=== PATIENT | female | born 1950 | race African-American/Black ===

== ENCOUNTER 2016-11-28 15:35 | Emergency (ER) | payer BC ==
--- NOTE | 2016-11-28 17:11 | ED CLINICAL REPORT ---
Clinical Report - Physicians/Mid Levels [facility] [address] [place] [address] 11/28/2016 15:38 Patient: JERRELL BAUER Time Seen: 15:55 Nov 28 2016. Arrived- By private vehicle. Historian- patient. HISTORY OF PRESENT ILLNESS Chief Complaint: SKIN RASH. This started 7 days and is still present. It is described as painful and burning. It has been located on the right lower extremity and left lower extremity. No recent medication. (Bilateral sores on legs over the last 7 days, history of similar, history of swelling. patient denies any history of DVT or PE. Patient recently moved to the area. Chronic off/ on swelling, at times worse. Saw pain specialist today, was taking too many meds, referred lorain.). REVIEW OF SYSTEMS No fever, cough, difficulty breathing, lump in throat or abdominal pain. All systems otherwise negative, except as recorded above. SOCIAL HISTORY Former smoker. No alcohol use or drug use. ADDITIONAL NOTES The nursing notes have been reviewed. PHYSICAL EXAM Vital Signs: 11/28/2016 15:48 BP: 156/104. HR: 108. RR: 20. O2 saturation: 100%. Temp: 98.5 F. Pain level now: 7/10. Appearance: Alert. ENT: Ears normal. Nose normal. CVS: Normal heart rate and rhythm. Heart sounds normal. Respiratory: No respiratory distress. Breath sounds normal. Skin: Skin warm. Small area of cellulitis with tenderness and erythema to right leg and left leg. No rash to scalp. There is warmth. Extremities: (good pedal pulse, no pedal edema. full rom at a nkle/ full rom at knee.). LABS, X-RAYS, AND EKG Laboratory Tests: CBC w Diff: (MAIRA: 11/28/2016 16:20) ( MsgRcvd 11/28/2016 17:04) Final results Test Result Flag Units (Reference) WHITE BLOOD COUNT 8.4 K/uL (4.5-11.5) RED BLOOD COUNT 3.48 L M/uL (4.00-5.20) HEMOGLOBIN 10.5 L gm/dL (12.0-16.0) HEMATOCRIT 32.8 L % (36.0-46.0) MEAN CELL VOLUME 95 fL (80-100) MEAN CORPUSCULAR HGB 30 pg (26-34) MEAN CORPUSCULAR HGB CONC 32 g/dL (31-37) RED CELL DISTRIBUTION WIDTH 16.0 H % (11.6-14.8) PLATELET COUNT 346 K/uL (150-400) NEUTROPHIL % 78.2 H % (50-75) LYMPH % 16.8 L % (25-40) MONO % 4.9 % (3-14) EOSINOPHIL % 0.1 % (0-4) BASOPHIL % 0 % (0-2) [id number]: (MAIRA: 11/28/2016 16:20) ( MsgRcvd 11/28/2016 17:16) Final results Test Result Flag Units (Reference) PROCALCITONIN < 0.5 ng/mL (0-0.5) PCT Concentration: Interpretation : Risk/option for action PCT <=0.5 ng/mL : Systemic : Low risk forinfection(sepsis): progression to severeis not likely. : systemic infection.Local bacterial : CAUTION-PCT levelsinfection is : below 0.5 ng/mL do notpossible. : exclude an infection,because localizedinfections (withoutsystemic signs) may beassociated with suchlow levels. If PCT ismeasured very earlyafter a bacterialchallenge (usually <6hours), these valuesmay still be low. Inthis case PCT shouldbe re-assessed 6-24hours later. PCT >0.5 and : Systemic infection: Moderate risk for<= 2 ng/mL : (sepsis) is : progression to severepossible, but : systemic infection.other conditions : The patient should beare known to : closely monitoredelevate PCT. : both clinically andby re-assessing PCTwithin 6-24 hours. PCT > 2 ng/mL : Systemic infection: High risk for(sepsis) is likely: progression to severeunless other : systemic infection.causes are known. : PCT >= 10 ng/mL : Important systemic: High likelihood ofinflammatory : severe sepsis orresponse, almost : septic shock.exclusively due to:severe bacterial :sepsis or septic :shock. : BMP: (MAIRA: 11/28/2016 16:20) ( MsgRcvd 11/28/2016 16:44) Final results Test Result Flag Units (Reference) GLUCOSE 103 mg/dL (70-110) BUN 19 H mg/dL (7-18) CREATININE 1.5 H mg/dL (0.6-1.3) Estimated GFR 37.16 mL/min Estimated GFR- 45.03 mL/min Note: Persistent reduction over 3 months in eGFR<60 mL/min/1.73 m2 defines CKD. Patients with eGFR values>=60 mL/min/1.73 m2 may also have CKD if evidence ofpersistent proteinuria. Additional information may be foundat www.kidney.org. SODIUM 144 mmol/L (136-145) POTASSIUM 3.6 mmol/L (3.5-5.1) CHLORIDE 111 H mmol/L (98-107) CARBON DIOXIDE 20 L mmol/L (21-32) CALCIUM 8.2 L mg/dL (8.5-10.1) . Note - Tests: (US VENOUS: IMPRESSION: 1. Negative venous ultrasound of the bilateral lower extremities. Electronically Final signed by:Alexey Lou MD 11/28/2016 5:23:52 PM). PROGRESS AND PROCEDURES Course of Care: Pt in the ER is very stable. Afebrile. Concerned she has not established pcp, however she has established pain management, however was self dosing too many pills, and has pain specialist for such who appears concerned pt not following his recommendations. Pt with no signs of dvt. NO lymphagetic streaking. Does not take meds for dm. 11/28/2016 17:21 BP: 182/90. HR: 111. RR: 20. O2 saturation: 100%. Temp: 97.9 F. Pain level now: 710. Patient is stable. Symptoms better. Patient/family counseled. Disposition: Discharged. CLINICAL IMPRESSION Cellulitis of the right lower leg and left lower leg. Diabetes (diet controlled). Hypertension. INSTRUCTIONS (elevate your legs limit sodium (salt) intake Address: [address] [place] [address] ). Prescription Medications: Bactrim DS 800 mg / 160 mg: take 1 tablet orally every 12 hours for 10 days. No refill. Substitution is permissible. Follow-up with: Wild Magaña MD, [facility], , [facility], [address] [place] [address] Follow up in two days for wound check. Call for the next available appointment. (Electronically signed by Carina Valencia P.A.-C 11/28/2016 18:16)
--- NOTE | 2016-11-28 17:11 | ED ORDER SUMMARY ---
..... Patient: JERRELL BAUER OrderSheet [facility] VisitID: [id number] [address] [place] [address] 66y, F Registration Date/Time: 11/28/2016 ORDER SHEET Weight: 61.2 kg (stated) Allergies: No Known Drug Allergy GENERAL ORDERS: CBC w Diff Urgent (15:52 11/28/2016 EKoroleva P.A.-C) (Ack 15:54 LNations ER Tech1) (16:24 JSimbeck R.N.) BMP Urgent (15:52 11/28/2016 EKoroleva P.A.-C) (Ack 15:54 LNations ER Tech1) (16:24 JSimbeck R.N.) PCT (Procalcitonin) Urgent (15:52 11/28/2016 EKoroleva P.A.-C) (Ack 15:54 LNations ER Tech1) (16:24 JSimbeck R.N.) US Venous Bilat Urgent (16:11 11/28/2016 EKoroleva P.A.-C) (Ack 16:12 LNations ER Tech1) (17:15 JSimbeck R.N.) Vitals (17:11 11/28/2016 EKoroleva P.A.-C) (17:25 IJurca ER Tech1) MEDICATION ORDERS: Percocet PO 10/650 mg (HIGH ALERT MEDICATION, NOW) (16:37 11/28/2016 EKoroleva P.A.-C) (16:47 LSullivan R.N.) Bactrim DS PO (Tablet 800-160 mg) 1 tab (NOW) (17:10 11/28/2016 EKoroleva P.A.-C) (17:22 JSimbeck R.N.) Dilaudid IM 2 mg (NOW) (17:30 11/28/2016 EKoroleva P.A.-C) (17:42 JSimbeck R.N.) IV FLUIDS: ORDER SHEET NOTES: [Electronically signed by Carina Valencia PFeliciaA.-C (18:16 11/28/2016)] [Electronically signed by Analisa Woodard R.N. (18:11/28/2016)] [Electronically locked/signed by Analisa Woodard R.N. (18:11/28/2016)]
--- NOTE | 2016-11-28 17:11 | ED NURSING NOTES ---
Clinical Report - Nurses [place] [address] [place] [address] 11/28/2016 15:38 Patient: JERRELL BAUER TRIAGE Triage time 15:48. Acuity: LEVEL 3. Chief Complaint: (Swelling in her legs, chronic; worse recently. Intermittent chills.). BRUNA COMA SCORE: Bruna Coma Scale: 15- eyes open spontaneously (4); best verbal response- oriented x 4 (5); best motor response- obeys commands (6). --15:57 Romaine Wilson R.N. 15:48 11/28/16. BP: 156/104. HR: 108. RR: 20. O2 saturation: 100% on room air. Temp: 98.5 F (oral). Pain level now: 01/07. --15:57 Romaine Wilson R.N. Weight: 61.2 kg stated. Height/Length: 62 inches Per Patient. BMI: 24.7. --15:53 Romaine Wilson R.N. Medications OxyCONTIN Oral. --15:49 Romaine Wilson R.N. Gabapentin Oral (Tablet 600 mg) 2 tablets, Q2 hours. --15:51 Romaine Wilson R.N. Allergies No Known Drug Allergy. --16:23 Romaine Wilson R.N. History Arrived by private vehicle. Historian: patient. ( Pt was driven by a friend). SOCIAL HX: Former smoker, end date 1996 (cigarette). No alcohol use or drug use. ABUSE ASSESSMENT: No report of abuse. --15:57 Romaine Wilson R.N. PROBLEMS: CVA - Cerebrovascular Accident. --15:50 Romaine Wilson R.N. Hypertension. Diabetes Mellitus. Sleep Apnea. --15:53 Romaine Wilson R.N. MRSA Infection. --16:21 Romaine Wilson R.N. ADDITIONAL SURGERIES: Bowel Surgery. Gastric Bypass. Hysterectomy. --15:53 Romaine Wilson R.N. Interventions ID band on patient. To treatment room. --15:57 Romaine Wilson R.N. PHYSICAL ASSESSMENT late entry -15:55. To room via wheelchair. GENERAL / NEURO / PSYCH: Alert. Oriented X 4. Appears in pain. HEENT: Pupils equal, round and reactive to light. No facial asymmetry noted. Mucous membranes are pink. RESPIRATORY: Respirations not labored. Chest nontender. Breath sounds within normal limits. CVS: Capillary refill less than 2 seconds. Pulses within normal limits. GI / : Abdomen soft and nontender and normal bowel sounds. SKIN: Skin is warm and dry. ( Bilat LE's have edema, errythema, open lesions, pain 01/07). --16:16 Romaine Wilson R.N. NURSING PROGRESS NOTES Reassurance given. Two patient identifiers checked. Call light placed in reach. Bed placed in lowest position. Brakes of bed on. Patient ready for evaluation- chart flagged. --16:17 Romaine Wilson R.N. 16:47 11/28/2016 Percocet (Oxycodone-Acetaminophen) PO 5/325 mg Tablets 2 tab given. Allergies verified, confirmed 5 rights and sedative warning given to the patient. --16:47 Analisa Woodard R.N. ( Pt unable to hold still for ultrasound, due to pain, medicated during ultrasound). --16:47 Analisa Woodard R.N. 17:20 11/28/2016 Bactrim DS (Sulfamethoxazole-TMP DS) PO Tablets 1 tab given. Allergies verified and confirmed 5 rights. --17:22 Romaine Wilson R.N. 17:30 11/28/2016 Percocet PO Response: no adverse reaction symptoms are the same. The patient feels the same. --17:43 Romaine Wilson R.N. 17:40 11/28/2016 Dilaudid (HYDROmorphone HCl PF) IM 2 mg given. Given in the left gluteus charly. Allergies verified, confirmed 5 rights and sedative warning given to the patient. --17:42 Romaine Wilson R.N. DISPOSITION / DISCHARGE 17:21 11/28/16. BP: 182/90. HR: 111. RR: 20. O2 saturation: 100% on room air. Temp: 97.9 F (oral). Pain level now: 01/07. --17:27 Romaine Wilson R.N. 18:10. Condition at departure: improved. No learning barriers present. Discharge instructions provided and reviewed with the patient. Reviewed medication(s) information. Prescription(s) given to the patient. Reviewed referrals. Verbalized understanding. Written instructions provided. The patient was discharged home and accompanied by family. She left the Emergency Department in a wheelchair and via private vehicle. Family member driving. --18:20 Analisa Woodard R.N. 18:19 11/28/16. BP: 170/81. HR: 109. RR: 18. O2 saturation: 100%. Temp: 98.5 F. Pain level now: 11/07. --18:20 Analisa Woodard R.N. Locked/Released at 11/28/2016 18:21 by Analisa Woodard R.N.
--- NOTE | 2016-11-28 17:11 | ED CLINICAL REPORT ---
Clinical Report - Physicians/Mid Levels [facility] [address] [place] [address] 11/28/2016 15:38 Patient: JERRELL BAUER Time Seen: 15:55 Nov 28 2016. Arrived- By private vehicle. Historian- patient. HISTORY OF PRESENT ILLNESS Chief Complaint: SKIN RASH. This started 7 days and is still present. It is described as painful and burning. It has been located on the right lower extremity and left lower extremity. No recent medication. (Bilateral sores on legs over the last 7 days, history of similar, history of swelling. patient denies any history of DVT or PE. Patient recently moved to the area. Chronic off/ on swelling, at times worse. Saw pain specialist today, was taking too many meds, referred lorain.). REVIEW OF SYSTEMS No fever, cough, difficulty breathing, lump in throat or abdominal pain. All systems otherwise negative, except as recorded above. SOCIAL HISTORY Former smoker. No alcohol use or drug use. ADDITIONAL NOTES The nursing notes have been reviewed. PHYSICAL EXAM Vital Signs: 11/28/2016 15:48 BP: 156/104. HR: 108. RR: 20. O2 saturation: 100%. Temp: 98.5 F. Pain level now: 7/10. Appearance: Alert. ENT: Ears normal. Nose normal. CVS: Normal heart rate and rhythm. Heart sounds normal. Respiratory: No respiratory distress. Breath sounds normal. Skin: Skin warm. Small area of cellulitis with tenderness and erythema to right leg and left leg. No rash to scalp. There is warmth. Extremities: (good pedal pulse, no pedal edema. full rom at a nkle/ full rom at knee.). LABS, X-RAYS, AND EKG Laboratory Tests: CBC w Diff: (MAIRA: 11/28/2016 16:20) ( MsgRcvd 11/28/2016 17:04) Final results Test Result Flag Units (Reference) WHITE BLOOD COUNT 8.4 K/uL (4.5-11.5) RED BLOOD COUNT 3.48 L M/uL (4.00-5.20) HEMOGLOBIN 10.5 L gm/dL (12.0-16.0) HEMATOCRIT 32.8 L % (36.0-46.0) MEAN CELL VOLUME 95 fL (80-100) MEAN CORPUSCULAR HGB 30 pg (26-34) MEAN CORPUSCULAR HGB CONC 32 g/dL (31-37) RED CELL DISTRIBUTION WIDTH 16.0 H % (11.6-14.8) PLATELET COUNT 346 K/uL (150-400) NEUTROPHIL % 78.2 H % (50-75) LYMPH % 16.8 L % (25-40) MONO % 4.9 % (3-14) EOSINOPHIL % 0.1 % (0-4) BASOPHIL % 0 % (0-2) [id number]: (MAIRA: 11/28/2016 16:20) ( MsgRcvd 11/28/2016 17:16) Final results Test Result Flag Units (Reference) PROCALCITONIN < 0.5 ng/mL (0-0.5) PCT Concentration: Interpretation : Risk/option for action PCT <=0.5 ng/mL : Systemic : Low risk forinfection(sepsis): progression to severeis not likely. : systemic infection.Local bacterial : CAUTION-PCT levelsinfection is : below 0.5 ng/mL do notpossible. : exclude an infection,because localizedinfections (withoutsystemic signs) may beassociated with suchlow levels. If PCT ismeasured very earlyafter a bacterialchallenge (usually <6hours), these valuesmay still be low. Inthis case PCT shouldbe re-assessed 6-24hours later. PCT >0.5 and : Systemic infection: Moderate risk for<= 2 ng/mL : (sepsis) is : progression to severepossible, but : systemic infection.other conditions : The patient should beare known to : closely monitoredelevate PCT. : both clinically andby re-assessing PCTwithin 6-24 hours. PCT > 2 ng/mL : Systemic infection: High risk for(sepsis) is likely: progression to severeunless other : systemic infection.causes are known. : PCT >= 10 ng/mL : Important systemic: High likelihood ofinflammatory : severe sepsis orresponse, almost : septic shock.exclusively due to:severe bacterial :sepsis or septic :shock. : BMP: (MAIRA: 11/28/2016 16:20) ( MsgRcvd 11/28/2016 16:44) Final results Test Result Flag Units (Reference) GLUCOSE 103 mg/dL (70-110) BUN 19 H mg/dL (7-18) CREATININE 1.5 H mg/dL (0.6-1.3) Estimated GFR 37.16 mL/min Estimated GFR- 45.03 mL/min Note: Persistent reduction over 3 months in eGFR<60 mL/min/1.73 m2 defines CKD. Patients with eGFR values>=60 mL/min/1.73 m2 may also have CKD if evidence ofpersistent proteinuria. Additional information may be foundat www.kidney.org. SODIUM 144 mmol/L (136-145) POTASSIUM 3.6 mmol/L (3.5-5.1) CHLORIDE 111 H mmol/L (98-107) CARBON DIOXIDE 20 L mmol/L (21-32) CALCIUM 8.2 L mg/dL (8.5-10.1) . Note - Tests: (US VENOUS: IMPRESSION: 1. Negative venous ultrasound of the bilateral lower extremities. Electronically Final signed by:Alexey Lou MD 11/28/2016 5:23:52 PM). PROGRESS AND PROCEDURES Course of Care: Pt in the ER is very stable. Afebrile. Concerned she has not established pcp, however she has established pain management, however was self dosing too many pills, and has pain specialist for such who appears concerned pt not following his recommendations. Pt with no signs of dvt. NO lymphagetic streaking. Does not take meds for dm. 11/28/2016 17:21 BP: 182/90. HR: 111. RR: 20. O2 saturation: 100%. Temp: 97.9 F. Pain level now: 710. Patient is stable. Symptoms better. Patient/family counseled. Disposition: Discharged. CLINICAL IMPRESSION Cellulitis of the right lower leg and left lower leg. Diabetes (diet controlled). Hypertension. INSTRUCTIONS (elevate your legs limit sodium (salt) intake Address: [address] [place] [address] ). Prescription Medications: Bactrim DS 800 mg / 160 mg: take 1 tablet orally every 12 hours for 10 days. No refill. Substitution is permissible. Follow-up with: Wild Magaña MD, [facility], , [facility], [address] [place] [address] Follow up in two days for wound check. Call for the next available appointment. (Electronically signed by Carina Valencia P.A.-C 11/28/2016 18:16)
--- NOTE | 2016-11-28 17:11 | ED ORDER SUMMARY ---
..... Patient: JERRELL BAUER OrderSheet [facility] VisitID: [id number] [address] [place] [address] 66y, F Registration Date/Time: 11/28/2016 ORDER SHEET Weight: 61.2 kg (stated) Allergies: No Known Drug Allergy GENERAL ORDERS: CBC w Diff Urgent (15:52 11/28/2016 EKoroleva P.A.-C) (Ack 15:54 LNations ER Tech1) (16:24 JSimbeck R.N.) BMP Urgent (15:52 11/28/2016 EKoroleva P.A.-C) (Ack 15:54 LNations ER Tech1) (16:24 JSimbeck R.N.) PCT (Procalcitonin) Urgent (15:52 11/28/2016 EKoroleva P.A.-C) (Ack 15:54 LNations ER Tech1) (16:24 JSimbeck R.N.) US Venous Bilat Urgent (16:11 11/28/2016 EKoroleva P.A.-C) (Ack 16:12 LNations ER Tech1) (17:15 JSimbeck R.N.) Vitals (17:11 11/28/2016 EKoroleva P.A.-C) (17:25 IJurca ER Tech1) MEDICATION ORDERS: Percocet PO 10/650 mg (HIGH ALERT MEDICATION, NOW) (16:37 11/28/2016 EKoroleva P.A.-C) (16:47 LSullivan R.N.) Bactrim DS PO (Tablet 800-160 mg) 1 tab (NOW) (17:10 11/28/2016 EKoroleva P.A.-C) (17:22 JSimbeck R.N.) Dilaudid IM 2 mg (NOW) (17:30 11/28/2016 EKoroleva P.A.-C) (17:42 JSimbeck R.N.) IV FLUIDS: ORDER SHEET NOTES: [Electronically signed by Carina Valencia PFeliciaA.-C (18:16 11/28/2016)] [Electronically signed by Analisa Woodard R.N. (18:11/28/2016)] [Electronically locked/signed by Analisa Woodard R.N. (18:11/28/2016)]
--- NOTE | 2016-11-28 17:11 | ED NURSING NOTES ---
Clinical Report - Nurses [place] [address] [place] [address] 11/28/2016 15:38 Patient: JERRELL BAUER TRIAGE Triage time 15:48. Acuity: LEVEL 3. Chief Complaint: (Swelling in her legs, chronic; worse recently. Intermittent chills.). BRUNA COMA SCORE: Bruna Coma Scale: 15- eyes open spontaneously (4); best verbal response- oriented x 4 (5); best motor response- obeys commands (6). --15:57 Romaine Wilson R.N. 15:48 11/28/16. BP: 156/104. HR: 108. RR: 20. O2 saturation: 100% on room air. Temp: 98.5 F (oral). Pain level now: 01/07. --15:57 Romaine Wilson R.N. Weight: 61.2 kg stated. Height/Length: 62 inches Per Patient. BMI: 24.7. --15:53 Romaine Wilson R.N. Medications OxyCONTIN Oral. --15:49 Romaine Wilson R.N. Gabapentin Oral (Tablet 600 mg) 2 tablets, Q2 hours. --15:51 Romaine Wilson R.N. Allergies No Known Drug Allergy. --16:23 oRmaine Wilson R.N. History Arrived by private vehicle. Historian: patient. ( Pt was driven by a friend). SOCIAL HX: Former smoker, end date 1996 (cigarette). No alcohol use or drug use. ABUSE ASSESSMENT: No report of abuse. --15:57 Romaine Wilson R.N. PROBLEMS: CVA - Cerebrovascular Accident. --15:50 Romaine Wilson R.N. Hypertension. Diabetes Mellitus. Sleep Apnea. --15:53 Romaine Wilson R.N. MRSA Infection. --16:21 Romaine Wilson R.N. ADDITIONAL SURGERIES: Bowel Surgery. Gastric Bypass. Hysterectomy. --15:53 Romaine Wilson R.N. Interventions ID band on patient. To treatment room. --15:57 Romaine Wilson R.N. PHYSICAL ASSESSMENT late entry -15:55. To room via wheelchair. GENERAL / NEURO / PSYCH: Alert. Oriented X 4. Appears in pain. HEENT: Pupils equal, round and reactive to light. No facial asymmetry noted. Mucous membranes are pink. RESPIRATORY: Respirations not labored. Chest nontender. Breath sounds within normal limits. CVS: Capillary refill less than 2 seconds. Pulses within normal limits. GI / : Abdomen soft and nontender and normal bowel sounds. SKIN: Skin is warm and dry. ( Bilat LE's have edema, errythema, open lesions, pain 01/07). --16:16 Romaine Wilson R.N. NURSING PROGRESS NOTES Reassurance given. Two patient identifiers checked. Call light placed in reach. Bed placed in lowest position. Brakes of bed on. Patient ready for evaluation- chart flagged. --16:17 Romaine Wilson R.N. 16:47 11/28/2016 Percocet (Oxycodone-Acetaminophen) PO 5/325 mg Tablets 2 tab given. Allergies verified, confirmed 5 rights and sedative warning given to the patient. --16:47 Analisa Woodard R.N. ( Pt unable to hold still for ultrasound, due to pain, medicated during ultrasound). --16:47 Analisa Woodard R.N. 17:20 11/28/2016 Bactrim DS (Sulfamethoxazole-TMP DS) PO Tablets 1 tab given. Allergies verified and confirmed 5 rights. --17:22 Romaine Wilson R.N. 17:30 11/28/2016 Percocet PO Response: no adverse reaction symptoms are the same. The patient feels the same. --17:43 Romaine Wilson R.N. 17:40 11/28/2016 Dilaudid (HYDROmorphone HCl PF) IM 2 mg given. Given in the left gluteus charly. Allergies verified, confirmed 5 rights and sedative warning given to the patient. --17:42 Romaine Wilson R.N. DISPOSITION / DISCHARGE 17:21 11/28/16. BP: 182/90. HR: 111. RR: 20. O2 saturation: 100% on room air. Temp: 97.9 F (oral). Pain level now: 01/07. --17:27 Romaine Wilson R.N. 18:10. Condition at departure: improved. No learning barriers present. Discharge instructions provided and reviewed with the patient. Reviewed medication(s) information. Prescription(s) given to the patient. Reviewed referrals. Verbalized understanding. Written instructions provided. The patient was discharged home and accompanied by family. She left the Emergency Department in a wheelchair and via private vehicle. Family member driving. --18:20 Analisa Woodard R.N. 18:19 11/28/16. BP: 170/81. HR: 109. RR: 18. O2 saturation: 100%. Temp: 98.5 F. Pain level now: 11/07. --18:20 Analisa Woodard R.N. Locked/Released at 11/28/2016 18:21 by Analisa Woodard R.N.
--- NOTE | 2016-11-28 17:24 | DIAGNOSTIC IMAGING REPORT ---
PROCEDURE: US VENOUS - BILATERAL EXT INDICATION: Bilateral lower extremity edema. TECHNIQUE: Color Doppler duplex imaging of the deep and superficial venous system without and with compression. COMPARISON: None. FINDINGS: RIGHT LOWER EXTREMITY: Deep and superficial venous system of the right lower extremity is within normal limits. There is no evidence of deep vein thrombosis or superficial thrombophlebitis. LEFT LOWER EXTREMITY: Deep and superficial venous system of the left lower extremity is within normal limits. There is no evidence of deep vein thrombosis or superficial thrombophlebitis. IMPRESSION: 1. Negative venous ultrasound of the bilateral lower extremities.
--- NOTE | 2016-11-28 18:22 | ED MAR SUMMARY ---
..... Medication Administration Record [facility] [address] [place] [address] Patient: JERRELL BAUER Visit ID: [id number] 66y, F Weight: 61.2 kg Height/Length: 62 in BMI: 24.7 ALLERGIES: No Known Drug Allergy Given 16:47 11/28/2016 Analisa Woodard R.N. Medication Administered: PERCOCET [PO] (OXYCODONE-ACETAMINOPHEN), Dose: 2 tab 5/325 mg Tablets PO. Medication Ordered: Percocet PO 10/650 mg (HIGH ALERT MEDICATION, NOW). Given 17:20 11/28/2016 Romaine Wilson R.N. Medication Administered: BACTRIM DS [PO] (SULFAMETHOXAZOLE-TMP DS), Dose: 1 tab Tablets PO. Medication Ordered: Bactrim DS PO (Tablet 800-160 mg) 1 tab (NOW). Given 17:40 11/28/2016 Romaine Wilson R.N. Medication Administered: DILAUDID [IM] (HYDROMORPHONE HCL PF), Dose: 2 mg IM. Medication Ordered: Dilaudid IM 2 mg (NOW).
--- NOTE | 2016-11-28 18:22 | ED DISCHARGE INSTRUCTIONS ---
Patient: JERRELL BAUER General Instructions [facility] VisitID: [id number] [place] [address] 66y, F Registration Date/Time: 11/28/2016 Cellulitis of the right lower leg and left lower leg. Diabetes (diet controlled). Hypertension. INSTRUCTIONS (elevate your legs limit sodium (salt) intake Address: [address] [place] [address] ). Prescription Medications: Bactrim DS 800 mg / 160 mg: take 1 tablet orally every 12 hours for 10 days. No refill. Substitution is permissible. Follow-up with: Wild Magaña MD, [facility], , [facility], [address] [place] [address] Follow up in two days for wound check. Call for the next available appointment. ADDITIONAL INFORMATION Cellulitis You have an infection of the skin known as cellulitis. This usually starts with a scrape, cut, insect bite, blister or other opening in the skin which becomes infected. This is a serious condition. It must be watched closely to be sure the infection is not spreading. With antibiotic treatment, the size of the red area will gradually shrink in size until the skin returns to normal. This will take 7-10 days. The red area should never increase in size once the antibiotic medicine has been started. Occasionally, an infection will be resistant to one antibiotic and another one will have to be used. Home Care: 1) Limit the use of the affected part, since excess movement can cause the infection to spread. 2) If the infection is on your leg, walk as little as possible during the first few days of the treatment. Keep your leg elevated while sitting. This will reduce swelling. 3) Take all of the antibiotic medicine exactly as directed until it is gone. Be careful not to miss any doses, especially during the first seven days. Follow Up with your doctor or this facility as directed. Check the infected area daily for the warning signs listed below. Get Prompt Medical Attention if any of the following occur: -- Spreading area of redness -- Increasing swelling or pain -- Appearance of pus or drainage -- Fever over 100.4 F (38.0 C) oral, or over 101.4 F (38.6 C) rectal, after two days on antibiotics Sulfamethoxazole, Trimethoprim Oral tablet What is this medicine? SULFAMETHOXAZOLE; TRIMETHOPRIM or SMX-TMP (suhl fuh meth OK indu zohl; trye METH oh prim) is a combination of a sulfonamide antibiotic and a second antibiotic, trimethoprim. It is used to treat or prevent certain kinds of bacterial infections. It will not work for colds, flu, or other viral infections. How should I use this medicine? Take this medicine by mouth with a full glass of water. Follow the directions on the prescription label. Take your medicine at regular intervals. Do not take it more often than directed. Do not skip doses or stop your medicine early. Talk to your mechanical maintenance technician regarding the use of this medicine in children. Special care may be needed. This medicine has been used in children as young as 2 months of age. What side effects may I notice from receiving this medicine? Side effects that you should report to your doctor or health veterinarian laboratory animal care as soon as possible: allergic reactions like skin rash or hives, swelling of the face, lips, or tongue breathing problems fever or chills, sore throat irregular heartbeat, chest pain joint or muscle pain pain or difficulty passing urine red pinpoint spots on skin redness, blistering, peeling or loosening of the skin, including inside the mouth unusual bleeding or bruising unusually weak or tired yellowing of the eyes or skin Side effects that usually do not require medical attention (report to your doctor or health veterinarian laboratory animal care if they continue or are bothersome): diarrhea dizziness headache loss of appetite nausea, vomiting nervousness What may interact with this medicine? Do not take this medicine with any of the following medications: aminobenzoate potassium dofetilide metronidazole This medicine may also interact with the following medications: SHERINE inhibitors like benazepril, enalapril, lisinopril, and ramipril cyclosporine digoxin diuretics indomethacin medicines for diabetes methenamine methotrexate phenytoin potassium supplements pyrimethamine sulfinpyrazone tricyclic antidepressants warfarin What if I miss a dose? If you miss a dose, take it as soon as you can. If it is almost time for your next dose, take only that dose. Do not take double or extra doses. Where should I keep my medicine? Keep out of the reach of children. Store at room temperature between 20 to 25 degrees C (68 to 77 degrees F). Protect from light. Throw away any unused medicine after the expiration date. What should I tell my health care provider before I take this medicine? They need to know if you have any of these conditions: anemia asthma being treated with anticonvulsants if you frequently drink alcohol containing drinks kidney disease liver disease low level of folic acid or [id number] dehydrogenase poor nutrition or malabsorption porphyria severe allergies thyroid disorder an unusual or allergic reaction to sulfamethoxazole, trimethoprim, sulfa drugs, other medicines, foods, dyes, or preservatives or trying to get breast-feeding What should I watch for while using this medicine? Tell your doctor or health veterinarian laboratory animal care if your symptoms do not improve. Drink several glasses of water a day to reduce the risk of kidney problems. Do not treat diarrhea with over the counter products. Contact your doctor if you have diarrhea that lasts more than 2 days or if it is severe and watery. This medicine can make you more sensitive to the sun. Keep out of the sun. If you cannot avoid being in the sun, wear protective clothing and use a sunscreen. Do not use sun lamps or tanning beds/booths. You have been given the following additional information: Cellulitis Sulfamethoxazole, Trimethoprim Oral tablet (Electronically signed by Carina Valencia P.A.-C 11/28/2016 18:16)
--- NOTE | 2016-11-28 18:22 | ED MAR SUMMARY ---
..... Medication Administration Record [facility] [address] [place] [place] [address] Patient: JERRELL BAUER Visit ID: [id number] 66y, F Weight: 61.2 kg Height/Length: 62 in BMI: 24.7 ALLERGIES: No Known Drug Allergy Given 16:47 11/28/2016 Analisa Woodard R.N. Medication Administered: PERCOCET [PO] (OXYCODONE-ACETAMINOPHEN), Dose: 2 tab 5/325 mg Tablets PO. Medication Ordered: Percocet PO 10/650 mg (HIGH ALERT MEDICATION, NOW). Given 17:20 11/28/2016 Romaine Wilson R.N. Medication Administered: BACTRIM DS [PO] (SULFAMETHOXAZOLE-TMP DS), Dose: 1 tab Tablets PO. Medication Ordered: Bactrim DS PO (Tablet 800-160 mg) 1 tab (NOW). Given 17:40 11/28/2016 Romaine Wilson R.N. Medication Administered: DILAUDID [IM] (HYDROMORPHONE HCL PF), Dose: 2 mg IM. Medication Ordered: Dilaudid IM 2 mg (NOW).
--- NOTE | 2016-11-28 18:22 | ED DISCHARGE INSTRUCTIONS ---
Patient: JERRELL BAUER General Instructions [facility] VisitID: [id number] [place] [address] 66y, F Registration Date/Time: 11/28/2016 Cellulitis of the right lower leg and left lower leg. Diabetes (diet controlled). Hypertension. INSTRUCTIONS (elevate your legs limit sodium (salt) intake Address: [address] [place] [address] ). Prescription Medications: Bactrim DS 800 mg / 160 mg: take 1 tablet orally every 12 hours for 10 days. No refill. Substitution is permissible. Follow-up with: Wild Magaña MD, [facility][1], , [facility], [address] [place] [address] Follow up in two days for wound check. Call for the next available appointment. ADDITIONAL INFORMATION Cellulitis You have an infection of the skin known as cellulitis. This usually starts with a scrape, cut, insect bite, blister or other opening in the skin which becomes infected. This is a serious condition. It must be watched closely to be sure the infection is not spreading. With antibiotic treatment, the size of the red area will gradually shrink in size until the skin returns to normal. This will take 7-10 days. The red area should never increase in size once the antibiotic medicine has been started. Occasionally, an infection will be resistant to one antibiotic and another one will have to be used. Home Care: 1) Limit the use of the affected part, since excess movement can cause the infection to spread. 2) If the infection is on your leg, walk as little as possible during the first few days of the treatment. Keep your leg elevated while sitting. This will reduce swelling. 3) Take all of the antibiotic medicine exactly as directed until it is gone. Be careful not to miss any doses, especially during the first seven days. Follow Up with your doctor or this facility as directed. Check the infected area daily for the warning signs listed below. Get Prompt Medical Attention if any of the following occur: -- Spreading area of redness -- Increasing swelling or pain -- Appearance of pus or drainage -- Fever over 100.4 F (38.0 C) oral, or over 101.4 F (38.6 C) rectal, after two days on antibiotics Sulfamethoxazole, Trimethoprim Oral tablet What is this medicine? SULFAMETHOXAZOLE; TRIMETHOPRIM or SMX-TMP (suhl fuh meth OK indu zohl; trye METH oh prim) is a combination of a sulfonamide antibiotic and a second antibiotic, trimethoprim. It is used to treat or prevent certain kinds of bacterial infections. It will not work for colds, flu, or other viral infections. How should I use this medicine? Take this medicine by mouth with a full glass of water. Follow the directions on the prescription label. Take your medicine at regular intervals. Do not take it more often than directed. Do not skip doses or stop your medicine early. Talk to your plate stacker hand regarding the use of this medicine in children. Special care may be needed. This medicine has been used in children as young as 2 months of age. What side effects may I notice from receiving this medicine? Side effects that you should report to your doctor or health anesthesiologist and critical care as soon as possible: allergic reactions like skin rash or hives, swelling of the face, lips, or tongue breathing problems fever or chills, sore throat irregular heartbeat, chest pain joint or muscle pain pain or difficulty passing urine red pinpoint spots on skin redness, blistering, peeling or loosening of the skin, including inside the mouth unusual bleeding or bruising unusually weak or tired yellowing of the eyes or skin Side effects that usually do not require medical attention (report to your doctor or health anesthesiologist and critical care if they continue or are bothersome): diarrhea dizziness headache loss of appetite nausea, vomiting nervousness What may interact with this medicine? Do not take this medicine with any of the following medications: aminobenzoate potassium dofetilide metronidazole This medicine may also interact with the following medications: SHERINE inhibitors like benazepril, enalapril, lisinopril, and ramipril cyclosporine digoxin diuretics indomethacin medicines for diabetes methenamine methotrexate phenytoin potassium supplements pyrimethamine sulfinpyrazone tricyclic antidepressants warfarin What if I miss a dose? If you miss a dose, take it as soon as you can. If it is almost time for your next dose, take only that dose. Do not take double or extra doses. Where should I keep my medicine? Keep out of the reach of children. Store at room temperature between 20 to 25 degrees C (68 to 77 degrees F). Protect from light. Throw away any unused medicine after the expiration date. What should I tell my health care provider before I take this medicine? They need to know if you have any of these conditions: anemia asthma being treated with anticonvulsants if you frequently drink alcohol containing drinks kidney disease liver disease low level of folic acid or amftfui-[id number]-fbnkpyahr dehydrogenase poor nutrition or malabsorption porphyria severe allergies thyroid disorder an unusual or allergic reaction to sulfamethoxazole, trimethoprim, sulfa drugs, other medicines, foods, dyes, or preservatives or trying to get breast-feeding What should I watch for while using this medicine? Tell your doctor or health anesthesiologist and critical care if your symptoms do not improve. Drink several glasses of water a day to reduce the risk of kidney problems. Do not treat diarrhea with over the counter products. Contact your doctor if you have diarrhea that lasts more than 2 days or if it is severe and watery. This medicine can make you more sensitive to the sun. Keep out of the sun. If you cannot avoid being in the sun, wear protective clothing and use a sunscreen. Do not use sun lamps or tanning beds/booths. You have been given the following additional information: Cellulitis Sulfamethoxazole, Trimethoprim Oral tablet (Electronically signed by Carina Valencia P.A.-C 11/28/2016 18:16)
--- NOTE | 2016-11-28 18:22 | ED MED RECONCILIATION SUMMARY ---
Patient: JERRELL BAUER Medication Reconciliation Report [facility] VisitID: [id number] [address] [place] [address] 66y, F Registration Date/Time: 11/28/2016 Weight: 61.2 kg Height/Length: 62 in. BMI: 24.7 ALLERGIES: No Known Drug Allergy The patient's Home Medications are listed below: THE FOLLOWING MEDICATIONS NEED TO BE RECONCILED: Gabapentin Oral (600 mg) 2 tablets, Q2 hours OxyCONTIN Oral The source(s) of the original Home Medication information: Not obtained. The following Medications were given to the patient in the Emergency Department: Percocet [PO] PO 2 tab, administered: 11/28/2016 4:47:00 PM Bactrim DS [PO] PO 1 tab, administered: 11/28/2016 5:20:00 PM Dilaudid [IM] IM 2 mg, administered: 11/28/2016 5:40:00 PM The following Medications were prescribed to the patient: Bactrim DS 800 mg / 160 mg: take 1 tablet orally every 12 hours for 10 days. No refill. Substitution is permissible. -- Carina Valencia P.A.-C
--- NOTE | 2016-11-28 18:22 | ED MED RECONCILIATION SUMMARY ---
Patient: JERRELL BAUER Medication Reconciliation Report [facility] VisitID: [id number] [address] [place] [address] 66y, F Registration Date/Time: 11/28/2016 Weight: 61.2 kg Height/Length: 62 in. BMI: 24.7 ALLERGIES: No Known Drug Allergy The patient's Home Medications are listed below: THE FOLLOWING MEDICATIONS NEED TO BE RECONCILED: Gabapentin Oral (600 mg) 2 tablets, Q2 hours OxyCONTIN Oral The source(s) of the original Home Medication information: Not obtained. The following Medications were given to the patient in the Emergency Department: Percocet [PO] PO 2 tab, administered: 11/28/2016 4:47:00 PM Bactrim DS [PO] PO 1 tab, administered: 11/28/2016 5:20:00 PM Dilaudid [IM] IM 2 mg, administered: 11/28/2016 5:40:00 PM The following Medications were prescribed to the patient: Bactrim DS 800 mg / 160 mg: take 1 tablet orally every 12 hours for 10 days. No refill. Substitution is permissible. -- Carina Valencia P.A.-C
== END 2016-11-28 18:10 | disposition home or self-care (01) ==
LOC: ED SRH 15:35
DX: L03.116 Cellulitis of left lower limb (principal); L03.115 Cellulitis of right lower limb; E11.9 Type 2 diabetes mellitus without complications; I10 Essential (primary) hypertension; Z87.891 Personal history of nicotine dependence
CPT/HCPCS: 90047; 93004; 95059

== ENCOUNTER 2016-12-31 13:58 | Outpatient (CLI) | payer BC ==
--- NOTE | 2016-12-31 16:05 | DIAGNOSTIC IMAGING REPORT ---
PROCEDURE: US COMPLETE PELVIC W/TRANSVAG INDICATION: PELVIC PAIN TECHNIQUE: Transabdominal and endovaginal doherty scale and color Doppler sonographic images of the female pelvis were obtained. COMPARISON: None. FINDINGS: TRANSABDOMINAL SCANS: The uterus is surgically absent. Kidneys are normal. TRANSVAGINAL SCANS: Right ovary is not seen. The left ovary is not seen. No masses or lesions were seen. . IMPRESSION: 1. Negative pelvic ultrasound. No masses or lesions seen.
== END 2016-12-31 23:00 ==
LOC: US SRH 13:58
DX: R60.9 Edema, unspecified (principal); R10.2 Pelvic and perineal pain

== ENCOUNTER 2017-01-10 18:45 | Emergency (ER) | payer BC, OTHER ==
--- NOTE | 2017-01-10 23:14 | ED ORDER SUMMARY ---
..... Patient: JERRELL BAUER OrderSheet [facility] VisitID: [id number] [address] [place] [address] 66y, F Registration Date/Time: 01/10/2017 ORDER SHEET Weight: 56.6 kg (stated) Allergies: No Known Drug Allergy GENERAL ORDERS: CBC w Diff Urgent (:01/10/2017 HBivens A.R.N.P.) (Ack 19:44 RKaruga) (21:05 RMarsden R.N.) CMP Urgent (:01/10/2017 HBivens A.R.N.P.) (Ack 19:44 RKaruga) (21:05 RMarsden R.N.) MEDICATION ORDERS: Hydrocodone-APAP PO 5/325 mg (NOW, HIGH ALERT MEDICATION) (23:15 01/10/2017 HBivens A.R.N.P.) (Ack 23:16 RMarsden R.N.) (23:21 RMarsden R.N.) IV FLUIDS: IV NS : initial bolus 1000 mL (1000 mL/hr), then none - (NOW) (:01/10/2017 HBivens A.R.N.P.) (Ack 21:05 RMarsden R.N.) (Cancelled: Can't place IV23:15 RMarsden R.N.) IV Saline Lock (:01/10/2017 HBivens A.R.N.P.) (Ack 21:05 RMarsden R.N.) (Cancelled: Can't place IV23:15 RMarsden R.N.) ORDER SHEET NOTES: [Electronically signed by Gwen PhilipRFeliciaN.PFelicia (23:27 01/10/2017)] [Electronically signed by Sheri Krishnamurthy R.N. (05:47 01/11/2017)] [Electronically locked/signed by Sheri Krishnamurthy R.N. (05:47 01/11/2017)]
--- NOTE | 2017-01-10 23:14 | ED NURSING NOTES ---
Clinical Report - Nurses [facility] [address] [place] [address] 01/10/2017 18:47 Patient: JERRELL BAUER TRIAGE Triage time 18:54. Acuity: LEVEL 3. Chief Complaint: DIZZINESS, WEAKNESS, LIGHT HEADED and NEAR-SYNCOPE. SEPSIS SCREEN: Sepsis Screen. Negative (no infection suspected/documented). --19:09 Cris Ledesma R.N. 18:54 01/10/17. BP: 149/89. HR: 80. RR: 16. O2 saturation: 100%. Temp: 98 F. Pain level now: 07/10. --19:09 Cris Ledesma R.N. Weight: 56.6 kg stated. Height/Length: 62 inches Per Patient. BMI: 22.8. --19:07 Cris Ledesma R.N. Medications Gabapentin Oral (Tablet 600 mg) 2 tablets, Q2 hours. OxyCONTIN Oral. --18:58 Cris Ledesma R.N. Allergies No Known Drug Allergy. --18:58 Cris Ledesma R.N. History Arrived by private vehicle. Historian: patient. ( Pt states she is chronically anemic). This started about 1 months ago. SOCIAL HX: No alcohol use or drug use. No infectious disease exposure. SELF HARM ASSESSMENT: A self harm assessment was performed. The patient answered "no" to the question "Do you have thoughts of harming or killing yourself?". FALL RISK ASSESSMENT: Fall risk assessment completed. No fall risk identified. NUTRITIONAL RISK ASSESSMENT: The nutritional risk assessment revealed no deficiencies. FUNCTIONAL ASSESSMENT: Functional assessment: no impairments noted. LEARNING NEEDS ASSESSMENT: The learning needs assessment revealed no barriers. ABUSE ASSESSMENT: Abuse assessment: ("yes") The patient was asked "Do you feel safe in your home?". SKIN INTEGRITY ASSESSMENT: Skin integrity risk assessment completed. No skin integrity risk identified. --19:09 Cris Ledesma R.N. PROBLEMS: Cellulitis. MRSA Infection. Hypertension. Diabetes Mellitus. Sleep Apnea. CVA - Cerebrovascular Accident. --18:58 Cris Ledesma R.N. ADDITIONAL SURGERIES: Bowel Surgery. Gastric Bypass. Hysterectomy. --18:59 Cris Ledesma R.N. Interventions ID band on patient. To room. --19:09 Cris Ledesma R.N. PHYSICAL ASSESSMENT Ambulatory to room. GENERAL / NEURO / PSYCH: Oriented X 4. Appears in no acute distress. Alert. Speech within normal limits. She has had constant, generalized weakness. RESPIRATORY: Respirations not labored. CVS: Capillary refill less than 2 seconds. SKIN: Skin is warm and dry. --19:10 Cris Ledesma R.N. NURSING PROGRESS NOTES Patient gowned. Two patient identifiers checked. Call light placed in reach. Side rails up. Bed placed in lowest position. Brakes of bed on. Patient ready for evaluation- ED physician notified. --19:10 Cris Ledesma R.N. Patient ID band checked for patient name and birthdate: patient confirmed. Instructions provided to collect clean catch urine and patient verbalized understanding. Clean catch urine collected; sample sent to lab. Specimen labeled in the presence of the patient. --19:11 Cris Ledesma R.N. Care transferred and report given (Sheri TRUJILLO). --19:34 Cris Ledesma R.N. 19:41 01/10/2017 Two (2) unsuccessful IV access attempts including the right antecubital space and hand. --19:51 Liliana Olsen R.N. 19:23. Care transferred and report received (from Cris TRUJILLO). --19:58 Sheri Krishnamurthy R.N. 20:03 01/10/2017 One (1) unsuccessful IV access attempt including the left antecubital space. Applied bandage and manual pressure. --20:03 Ailyn Fletcher R.N. 21:08 01/10/17. BP: 121/56 taken on the left arm, while lying. HR: 83. RR: 14. O2 saturation: 98% on room air. Temp: deferred. Pain level now: 0/10. --21:11 Sheri Krishnamurthy R.N. 21:11 01/10/17. GENERAL / NEURO / PSYCH: Patient is calm and cooperative. Affect appears normal. Alert. Oriented X 4. RESPIRATORY: No respiratory distress. ( Patient given sandwich. Patient states she has no other needs at this time.). --21:11 Sheri Krishnamurthy R.N. 23:00. ( At patient bedside to disconnect her from monitoring so patient can use the restroom. Patient said she is okay to walk to the bathroom without help). --23:21 Eden Sims 23:11 01/10/2017 Hydrocodone-APAP (Hydrocodone-Acetaminophen) PO 5/325 mg Tablets 1 tab given. Allergies verified, confirmed 5 rights and sedative warning given to the patient. --23:21 Sheri Krishnamurthy R.N. DISPOSITION / DISCHARGE 23:19. No learning barriers present. Discharge instructions provided and reviewed with the patient. Follow up contact number. Patient verbalized understanding. Written instructions provided in Portuguese. The patient was discharged home. She left the Emergency Department ambulatory and via private vehicle. Family Services Coordinator driving. --23:24 Sheri Krishnamurthy R.N. 23:16 01/10/17. BP: 139/63. HR: 75. RR: 14. O2 saturation: 98% on room air. Temp: deferred. Pain level now: 6/10. Additional comments: ED CUSTOMER ASSOCIATE notified of pain, orders given. --23:24 Sheri Krishnamurthy R.N. Locked/Released at 01/11/2017 5:47 by Sheri Krishnamurthy R.N.
--- NOTE | 2017-01-10 23:14 | ED CLINICAL REPORT ---
Clinical Report - Physicians/Mid Levels [facility] [address], [place] [address] 01/10/2017 18:47 Patient: JERRELL BAUER Time Seen: 19:00; upon arrival, initial patient contact, initial documentation, patient care assumed. Arrived- By private vehicle. Historian- patient. HISTORY OF PRESENT ILLNESS Chief Complaint: NEAR-SYNCOPE. This occurred years ago. The patient had preceding symptoms of light-headedness. No preceding symptoms of dim vision or chest pain. The patient felt faint. No loss of consciousness or seizure activity. The patient currently has weakness. Similar symptoms previously: Chronically, as bad. ( says she was dx with anemia back in 2006, and she was txed for cellulitis in October here, and hadn't seen a dr in years, but she did f/u next door at clinic for routine check up to get dr, and for cellulitis, and they told her she was anemic again, can't take fe pills because it irritates her stomach, so she takes multivitamin instead, still feels weak, dizzy and wants to be admitted). Recent medical care: The patient was seen recently in a clinic. REVIEW OF SYSTEMS The patient has had dizziness and weakness. No chest pain, palpitations, abdominal pain, vomiting or diarrhea. No fever or difficulty breathing. All systems otherwise negative, except as recorded above. PAST HISTORY See nurses notes. ( PROBLEMS: Cellulitis. MRSA Infection. Hypertension. Diabetes Mellitus. Sleep Apnea. CVA - Cerebrovascular Accident. --18:58 Cris Ledesma, R.N. ADDITIONAL SURGERIES: Bowel Surgery. Gastric Bypass. Hysterectomy. --18:59 Cris Ledesma, R.N.). SOCIAL HISTORY Never smoker. No alcohol use or drug use. No recent travel. Is a local resident. FAMILY HISTORY Negative. ADDITIONAL NOTES The nursing notes have been reviewed with agreement regarding the chief complaint, HPI, ROS, PMH and patient medications and allergies. PHYSICAL EXAM Vital Signs: 01/10/2017 18:54 BP: 149/89. HR: 80. RR: 16. O2 saturation: 100%. Temp: 98 F. Pain level now: 07/10. Have been reviewed as normal and appear to be correct. Appearance: Alert. No acute distress. Eyes: Pupils equal, round and reactive to light. No nystagmus. Extraocular movements normal. ENT: Normal ENT inspection. TM's normal. Moist mucous membranes. Pharynx normal. Neck: Normal inspection. Neck supple. CVS: Normal heart rate and rhythm. Heart sounds normal. Pulses normal. Respiratory: No respiratory distress. Breath sounds normal. Abdomen: Soft and nontender. No organomegaly. Back: Normal inspection. Skin: Skin warm and dry. Normal skin color. No rash. Normal skin turgor. Extremities: Extremities exhibit normal ROM. No lower extremity edema. Neuro: Alert. Oriented X 3. Mood/affect normal. Speech normal. Cranial nerves normal (as tested). No cerebellar findings. No motor deficit. No sensory deficit. LABS, X-RAYS, AND EKG Laboratory Tests: CBC w Diff: (MAIRA: 01/10/2017 20:50) ( [facility] 01/10/2017 21:01) Final results Test Result Flag Units (Reference) WHITE BLOOD COUNT 4.2 L K/uL (4.5-11.5) RED BLOOD COUNT 2.78 L M/uL (4.00-5.20) HEMOGLOBIN 8.6 L gm/dL (12.0-16.0) HEMATOCRIT 26.3 L % (36.0-46.0) MEAN CELL VOLUME 94 fL (80-100) MEAN CORPUSCULAR HGB 31 pg (26-34) MEAN CORPUSCULAR HGB CONC 33 g/dL (31-37) RED CELL DISTRIBUTION WIDTH 14.2 % (11.6-14.8) PLATELET COUNT 194 K/uL (150-400) NEUTROPHIL % 56.8 % (50-75) LYMPH % 32.1 % (25-40) MONO % 8.9 % (3-14) EOSINOPHIL % 1.8 % (0-4) BASOPHIL % 0.4 % (0-2) CMP: (MAIRA: 01/10/2017 20:50) ( [facility] 01/10/2017 21:22) Final results Test Result Flag Units (Reference) GLUCOSE 76 mg/dL (70-110) BUN 18 mg/dL (7-18) CREATININE 1.3 mg/dL (0.6-1.3) Estimated GFR 43.83 mL/min Estimated GFR- 53.12 mL/min Note: Persistent reduction over 3 months in eGFR<60 mL/min/1.73 m2 defines CKD. Patients with eGFR values>=60 mL/min/1.73 m2 may also have CKD if evidence ofpersistent proteinuria. Additional information may be foundat www.kidney.org. SODIUM 145 mmol/L (136-145) POTASSIUM 4.0 mmol/L (3.5-5.1) CHLORIDE 111 H mmol/L (98-107) CARBON DIOXIDE 25 mmol/L (21-32) CALCIUM 8.0 L mg/dL (8.5-10.1) TOTAL PROTEIN 6.4 g/dL (6.4-8.2) ALBUMIN 2.9 L g/dL (3.3-5.0) BILIRUBIN, TOTAL 0.3 mg/dL (0.0-1.0) ALKALINE PHOSPHATASE 116 U/L (46-116) AST (SGOT) 18 U/L (15-37) ALT (SGPT) 18 U/L (12-78) . PROGRESS AND PROCEDURES Peripheral IV Placement: Performed by me. Indication: others unavailable to perform. IV placed in the left hand with a 20g angiocath with aseptic technique; two attempts. unsuccessful. Course of Care: ER visit from 11/28 reviewed HEMOGLOBIN 10.5 L gm/dL (12.0-16.0) HEMATOCRIT 32.8 L % (36.0-46.0. 01/10/2017 21:08 BP: 121/56. HR: 83. RR: 14. O2 saturation: 98%. Pain level now: 0/10. Vital Signs: have been reviewed as normal and appear to be correct. Patient counseled in person regarding the patient's stable condition, test results and diagnosis. 23:11. Differential Diagnosis: I considered hypovolemia, adrenal insufficiency and hypoglycemia as a possible cause of syncope in this patient. This is a partial list of diagnoses considered. (anemia, dehydration, low thyroid, electrolyte imbalance). Above considerations are based on history, physical exam, reassessment and laboratory data. Differential diagnosis was discussed with patient. Disposition: Discharged home in good and improved condition (23:13). Condition: good and stable. CLINICAL IMPRESSION Moderate chronic iron deficiency anemia. INSTRUCTIONS Warnings: GENERAL WARNINGS: Return or contact your physician immediately if your condition worsens or changes unexpectedly, if not improving as expected, or if other problems arise. SPECIFICALLY, return if you develop chest pain, neck pain, jaw pain, shoulder pain, arm pain, back pain, fluttering sensation in your chest, lightheadedness, fainting, numbness, weakness or extreme fatigue. Follow-up: Follow up with your doctor in about two days even if well. Summary of care provided to patient. Understanding of the discharge instructions verbalized by patient. (Electronically signed by Gwen Philip A.R.N.P. 01/10/2017 23:27)
--- NOTE | 2017-01-10 23:14 | ED ORDER SUMMARY ---
..... Patient: JERRELL BAUER OrderSheet [facility] VisitID: [id number] [address] [place] [address] 66y, F Registration Date/Time: 01/10/2017 ORDER SHEET Weight: 56.6 kg (stated) Allergies: No Known Drug Allergy GENERAL ORDERS: CBC w Diff Urgent (:01/10/2017 HBivens A.R.N.P.) (Ack 19:44 RKaruga) (21:05 RMarsden R.N.) CMP Urgent (:01/10/2017 HBivens A.R.N.P.) (Ack 19:44 RKaruga) (21:05 RMarsden R.N.) MEDICATION ORDERS: Hydrocodone-APAP PO 5/325 mg (NOW, HIGH ALERT MEDICATION) (23:15 01/10/2017 HBivens A.R.N.P.) (Ack 23:16 RMarsden R.N.) (23:21 RMarsden R.N.) IV FLUIDS: IV NS : initial bolus 1000 mL (1000 mL/hr), then none - (NOW) (:01/10/2017 HBivens A.R.N.P.) (Ack 21:05 RMarsden R.N.) (Cancelled: Can't place IV23:15 RMarsden R.N.) IV Saline Lock (:01/10/2017 HBivens A.R.N.P.) (Ack 21:05 RMarsden R.N.) (Cancelled: Can't place IV23:15 RMarsden R.N.) ORDER SHEET NOTES: [Electronically signed by Gwen PhilipRFeliciaN.PFelicia (23:27 01/10/2017)] [Electronically signed by Sheri Krishnamurthy R.N. (05:47 01/11/2017)] [Electronically locked/signed by Sheri Krishnamurthy R.N. (05:47 01/11/2017)]
--- NOTE | 2017-01-11 05:48 | ED DISCHARGE INSTRUCTIONS ---
Patient: JERRELL BAUER General Instructions [facility] VisitID: [id number] [address] [place] [address] 66y, F Registration Date/Time: 01/10/2017 Moderate chronic iron deficiency anemia. INSTRUCTIONS Warnings: GENERAL WARNINGS: Return or contact your physician immediately if your condition worsens or changes unexpectedly, if not improving as expected, or if other problems arise. SPECIFICALLY, return if you develop chest pain, neck pain, jaw pain, shoulder pain, arm pain, back pain, fluttering sensation in your chest, lightheadedness, fainting, numbness, weakness or extreme fatigue. Follow-up: Follow up with your doctor in about two days even if well. Summary of care provided to patient. Understanding of the discharge instructions verbalized by patient. ADDITIONAL INFORMATION Anemia [Type Not Specified, Adult] Red blood cells carry oxygen to the tissues of the body. Anemia is a condition where the size or number of red blood cells in the body is reduced. Iron is needed to make red blood cells. The most common cause of anemia is iron deficiency. This may be due to: i) Blood loss (heavy menstrual periods or bleeding from the stomach or intestines); or, ii) Not eating enough iron-containing foods. Other causes of anemia include certain vitamin deficiencies, chronic kidney disease or certain other chronic illnesses. Anemia causes a feeling of being tired and run down. When anemia becomes severe, the skin becomes pale and there is shortness of breath with exertion. Headaches, dizziness, leg cramps with exertion, drowsiness and fatigue are other common symptoms. Home Care: If you are having symptoms of anemia listed above: -- Do not overexert yourself. -- Talk to your doctor before flying on an airplane or traveling to high altitudes. Follow Up with your doctor as advised by our staff. Additional blood testing may be required to determine the exact cause of your anemia. If testing was done on this visit, it may take several days to get all of the results. You may call this facility or follow up with your own doctor to get the results. Get Prompt Medical Attention if any of the following occur: -- Shortness of breath or chest pain -- Worsening of dizziness, fainting -- Vomiting blood or passing red or black-colored stool Anemia, Iron Deficiency [Adult] Anemia is a condition where the size or number of red blood cells in the body is reduced. Iron is needed in the diet to make red cells. The red blood cells carry oxygen to all parts of the body. Anemia limits the delivery of oxygen to where it is needed. This causes a feeling of being tired and run down. When anemia becomes severe, the skin becomes pale and there is shortness of breath with exertion, headaches, dizziness, drowsiness and fatigue. The cause of your anemia is lack of iron in your body. This may occur due to blood loss (for example, heavy menstrual periods or bleeding from the stomach or intestines) or a poor diet (not eating enough iron-containing foods), inability to absorb iron from your diet, or . If the blood count is low enough, an IRON SUPPLEMENT will be prescribed. It usually takes about 2-3 months of treatment with iron supplements to correct an anemia. Severe cases of anemia requires a blood transfusion to rapidly correct symptoms and deliver more oxygen to the cells. Home Care: 1) Increase the iron stores in your body by eating foods high in iron content. This is a natural way of building your blood cells back up again. Beef, liver, spinach and other dark green leafy vegetables, whole grain products, beans and nuts are all natural sources of iron. 2) If you are having symptoms of anemia listed above: -- Do not overexert yourself. -- Talk to your doctor before flying on an airplane or traveling to high altitudes. Follow Up with your doctor in 2 months for a repeat red blood cell count, or as recommended by our staff, to be sure that the anemia has been corrected. Get Prompt Medical Attention if any of the following occur or worsen: -- Shortness of breath or chest pain -- Dizziness or fainting -- Vomiting blood or passing red or black-colored stool You have been given the following additional information: Anemia, Type Not Specified (Adult) Anemia, Iron Deficiency (Adult) (Electronically signed by Gwen Philip A.R.N.P. 01/10/2017 23:27)
--- NOTE | 2017-01-11 05:48 | ED MED RECONCILIATION SUMMARY ---
Patient: JERRELL BAUER Medication Reconciliation Report [facility] VisitID: [id number] [address] [place] [place] [address] 66y, F Registration Date/Time: 01/10/2017 Weight: 56.6 kg Height/Length: 62 in. BMI: 22.8 ALLERGIES: No Known Drug Allergy The patient's Home Medications are listed below: THE FOLLOWING MEDICATIONS NEED TO BE RECONCILED: Gabapentin Oral (600 mg) 2 tablets, Q2 hours OxyCONTIN Oral The source(s) of the original Home Medication information: Not obtained. The following Medications were given to the patient in the Emergency Department: Hydrocodone-APAP [PO] PO 1 tab, administered: 01/10/2017 11:11:00 PM The following Medications were prescribed to the patient: None.
--- NOTE | 2017-01-11 05:48 | ED MAR SUMMARY ---
..... Medication Administration Record [facility] [address] [place] [address] Patient: JERRELL BAUER Visit ID: [id number] 66y, F Weight: 56.6 kg Height/Length: 62 in BMI: 22.8 ALLERGIES: No Known Drug Allergy Given 23:11 01/10/2017 Sheri Krishnamurthy R.N. Medication Administered: HYDROCODONE-APAP [PO] (HYDROCODONE-ACETAMINOPHEN), Dose: 1 tab 5/325 mg Tablets PO. Medication Ordered: Hydrocodone-APAP PO 5/325 mg (NOW, HIGH ALERT MEDICATION).
--- NOTE | 2017-01-11 05:48 | ED MED RECONCILIATION SUMMARY ---
Patient: JERRELL BAUER Medication Reconciliation Report [facility] VisitID: [id number] [address] [place] [place] [address] 66y, F Registration Date/Time: 01/10/2017 Weight: 56.6 kg Height/Length: 62 in. BMI: 22.8 ALLERGIES: No Known Drug Allergy The patient's Home Medications are listed below: THE FOLLOWING MEDICATIONS NEED TO BE RECONCILED: Gabapentin Oral (600 mg) 2 tablets, Q2 hours OxyCONTIN Oral The source(s) of the original Home Medication information: Not obtained. The following Medications were given to the patient in the Emergency Department: Hydrocodone-APAP [PO] PO 1 tab, administered: 01/10/2017 11:11:00 PM The following Medications were prescribed to the patient: None.
--- NOTE | 2017-01-11 05:48 | ED MAR SUMMARY ---
..... Medication Administration Record [facility] [address] [place] [address] Patient: JERRELL BAUER Visit ID: [id number] 66y, F Weight: 56.6 kg Height/Length: 62 in BMI: 22.8 ALLERGIES: No Known Drug Allergy Given 23:11 01/10/2017 Sheri Krishnamurthy R.N. Medication Administered: HYDROCODONE-APAP [PO] (HYDROCODONE-ACETAMINOPHEN), Dose: 1 tab 5/325 mg Tablets PO. Medication Ordered: Hydrocodone-APAP PO 5/325 mg (NOW, HIGH ALERT MEDICATION).
== END 2017-01-10 23:19 | disposition home or self-care (01) ==
LOC: ED SRH 18:45
DX: D50.9 Iron deficiency anemia, unspecified (principal); I10 Essential (primary) hypertension; E11.9 Type 2 diabetes mellitus without complications
CPT/HCPCS: 90074; 90100; 95059